=== PATIENT | female | born 1990 | race Caucasian/White ===

== ENCOUNTER 2016-11-11 18:45 | Emergency (ER) | payer SELFPAY ==
[~2016-11-11] VITALS: Ht 160 cm; Wt 99.8 kg
[~2016-11-11 18:45] MED LIST: AMOXICILLIN500 MG PO; ATARAX25 MG PO; CATAFLAM50 MG PO; CIPRODEX 0.3%-7.5 ML OT; CLARITIN10 MG PO; IBU800 MG PO; KEFLEX500 MG PO; MOTRIN800 MG PO; NKHM; Nizoral 2%15 GM PO; VICODIN1 TAB PO; ZITHROMAX Z PA250 MG PO
[2016-11-11 19:28] LABS: BASO # 0.1 10*3/uL (0.0-0.1); BASO % 0.6 % (0.0-1.0); EOS # 0.1 10*3/uL (0.0-0.4); EOS % 1.6 % (1.0-4.0); HEMATOCRIT 41.5 % (37.0-47.0); HEMOGLOBIN 13.8 g/dl (12.0-16.0); LYMPH # 2.7 10*3/uL (1.3-4.4); LYMPH % 33.8 % (27.0-41.0); MEAN CELL VOLUME 83.3 fl (81.0-99.0); MEAN CORPUSCULAR HGB 27.7 pg (27.0-31.0); MEAN CORPUSCULAR HGB CONC 33.3 g/dl (33.0-37.0); MEAN PLATELET VOLUME 9.3 fl (9.6-12.3); MONO # 0.6 10*3/uL (0.1-1.0); MONO % 7.7 % (3.0-9.0); NEUT # 4.5 10*3/uL (2.3-7.9); PLATELET COUNT AUTOMATED 434 10*3/uL (130-400); RED BLOOD COUNT 4.98 10*6/uL (4.10-5.10); RED CELL DISTRI WIDTH 12.6 % (0-14.5); WHITE BLOOD COUNT 7.9 10*3/uL (4.8-10.8)
[2016-11-11 19:44] LABS: ALBUMIN 3.8 gm/dl (3.1-4.5); ALKALINE PHOSPHATASE 79 U/L (45-117); BILIRUBIN, TOTAL 0.3 mg/dl (0.2-1.0); BUN 13 mg/dl (7-24); CARBON DIOXIDE 23 mmol/L (21-32); CHLORIDE 103 mmol/L (98-107); EST GLOM FILT AFRICAN AMERICAN > 60 ml/min; GLUCOSE 115 mg/dL (65-99); POTASSIUM 3.3 mmol/L (3.5-5.1); SGOT/AST 12 IU/L (3-35); SGPT/ALT 21 U/L (12-78); SODIUM 139 mmol/L (136-145); TOTAL PROTEIN 8.7 gm/dL (6.4-8.2)
[2016-11-11 19:55] LABS: BILIRUBIN NEGATIVE (NEGATIVE); BLOOD 3+ (NEGATIVE); CLARITY CLOUDY (CLEAR); COLOR YELLOW (YELLOW); GLUCOSE NEGATIVE (NEGATIVE); KETONE NEGATIVE (NEGATIVE); LEUKO ESTERASE 2+ (NEGATIVE); NITRITE POSITIVE (NEGATIVE); PH 5.5 (5.0-9.0); PROTEIN 3+ (NEGATIVE); SPECIFIC GRAVITY >= 1.030 (1.005-1.030); UROBILINOGEN 0.2 E.U./dl (0.2-1.0)
[2016-11-11 20:06] LABS: BACTERIA 2+; EPITHELIAL CELLS 20-25; MUCOUS TRACE; URINE REFLEX COMMENT YES (NO); WBC TNTC wbc/hpf (0-5)
[2016-11-11] MEDS ORDERED: MACROBID100 M1 PO (20:14)
== END 2016-11-11 21:13 | disposition home or self-care (01) ==
LOC: ED 18:45
PROVIDERS: Physician Assistant
DX: N30.01 Acute cystitis with hematuria (principal); Z90.49 Acquired absence of other specified parts of digestive tract; Z91.030 Bee allergy status

== ENCOUNTER 2020-02-08 11:39 | Emergency (ER) | payer SELFPAY ==
[~2020-02-08 11:39] MED LIST changes: +MACROBID100 M1 PO
[2020-02-08] MEDS ORDERED: AMOXICILLIN500 M2 PO (11:59)
== END 2020-02-08 12:09 | disposition home or self-care (01) ==
LOC: ED 11:39
DX: H66.92 Otitis media, unspecified, left ear (principal); Z91.030 Bee allergy status

== ENCOUNTER 2021-02-03 11:21 | Emergency (ER) | payer SELFPAY ==
[~2021-02-03 11:21] MED LIST changes: +AMOXICILLIN500 M2 PO
== END 2021-02-03 11:45 | disposition left against medical advice (07) ==
LOC: ED 11:21
DX: S69.90XA Unspecified injury of unspecified wrist, hand and finger(s), initial encounter (principal); Z53.21 Procedure and treatment not carried out due to patient leaving prior to being seen by health care provider; X58.XXXA Exposure to other specified factors, initial encounter; Y93.89 Activity, other specified; Y92.89 Other specified places as the place of occurrence of the external cause; Y99.8 Other external cause status

== ENCOUNTER 2024-11-06 15:11 | Emergency (ER) | payer SELFPAY ==
[~2024-11-06] VITALS: Ht 162.5 cm; Wt 95.3 kg
== END 2024-11-06 17:31 | disposition home or self-care (01) ==
LOC: ED 15:11
DX: S90.31XA Contusion of right foot, initial encounter (principal); Z91.030 Bee allergy status; Z79.899 Other long term (current) drug therapy; Z90.49 Acquired absence of other specified parts of digestive tract; W20.8XXA Other cause of strike by thrown, projected or falling object, initial encounter; Y93.89 Activity, other specified; Y92.89 Other specified places as the place of occurrence of the external cause; Y99.8 Other external cause status